=== PATIENT | female | born 2000 | race Two or more races ===

== ENCOUNTER 2021-04-21 13:15 | Inpatient (IN) | payer OTHER ==
[~2021-04-21] VITALS: Ht 160 cm; Wt 65.8 kg
[2021-05-06] MEDS ORDERED: PRENATAL CAPLE1 EAC1 PO (10:21)
== END 2021-05-08 12:54 | disposition home or self-care (01) | DRG 807 ==
LOC: LDR 05-06 07:38 → OB/GYN 05-06 12:52
PROVIDERS: ADMIT Obstetrics & Gynecology; ATTEND Obstetrics & Gynecology
PROC: 10E0XZZ Delivery of Products of Conception, External Approach (ICD-10-PCS; principal; 2021-05-06)
PROC: 10907ZC Drainage of Amniotic Fluid, Therapeutic from Products of Conception, Via Natural or Artificial Opening (ICD-10-PCS; 2021-05-06)
PROC: 3E033VJ Introduction of Other Hormone into Peripheral Vein, Percutaneous Approach (ICD-10-PCS; 2021-05-06)
PROC: 4A1HXFZ Monitoring of Products of Conception, Cardiac Rhythm, External Approach (ICD-10-PCS; 2021-05-06)
DX: O80 Encounter for full-term uncomplicated delivery (principal); Z37.0 Single live birth; Z3A.39 39 weeks gestation of pregnancy; Z20.822 Contact with and (suspected) exposure to COVID-19